=== PATIENT | female | born 1990 | race Caucasian/White ===

== ENCOUNTER 2016-12-16 18:07 | Emergency (ER) | payer BC ==
[~2016-12-16 18:07] MED LIST: ANIMAL SHAPES1 EAC2 PO; CIPRO PO; LEVAQUIN750 MG PO; MOTRIN600 M2 PO; NO MEDICATIONS; PHENERGAN25 MG PO; TOPAMAX PO; VIT B-12 PO; VITAMIN D400 UNI2 PO
== END 2016-12-16 18:09 | disposition home or self-care (01) ==
LOC: SED 18:07
DX: H66.92 Otitis media, unspecified, left ear (principal); H60.92 Unspecified otitis externa, left ear; F17.200 Nicotine dependence, unspecified, uncomplicated; G43.909 Migraine, unspecified, not intractable, without status migrainosus
CPT/HCPCS: 99282

== ENCOUNTER 2017-06-08 16:39 | Emergency (ER) | payer BC ==
--- NOTE | ~2017-06-08 | CT71 ---
[facility] A Service of [facility] RADIOLOGY TEXT RESULTS PATIENT: SARA KAPLAN LOCATION: SED : [birth year] UNIT #: [id number] AGE: [address]: Jose Alejandro Coates MD SEX: F ORDER DR: [id number] [address] [address] [id number] MR#: [id number] Acc #: [id number] NAME: SARA KAPLAN : 1990 SEX: F STUDY DATE/TIME: 06/08/2017 17:34 UNIT: SED ROOM: STUDY DESCRIPTION: CT Head Wo Contrast Attending Physician: Jose Alejandro Coates M.D. Ordering Physician: Jose Alejandro Coates M.D. Primary Care Physician: No Primary Care Physician MEDICAL IMAGING REPORT This report is preliminary unless electronic signature is present. EXAM CT of head without IV contrast. COMPARISON None. INDICATIONS 26-year-old female with sharp pain posterior to the right eye sustained today. History of migraines. Current emesis. FINDINGS This CT exam was performed with one or more of the following radiation dose reduction techniques: automatic exposure control, adjustment of mA and/or kV according to patient size, and iterative reconstruction. Axial noncontrast images were obtained from the skull base to the vertex. Ventricular size and configuration are normal. There is no evidence of acute infarct or hemorrhage. There are no extra-axial fluid collections. No mass lesion or mass effect is seen. There are no skull fractures. IMPRESSION Normal noncontrast head CT. Dictated by... Ryan Callejas M.D. THIS IS AN ELECTRONICALLY VERIFIED REPORT Ryan Callejas M.D. at 06/13/2017 10:54 PM Marlon TD: 06/09/2017 00:18 [facility] A Service of [facility] RADIOLOGY TEXT RESULTS PATIENT: SARA KAPLAN LOCATION: SED : 91 UNIT #: [id number] AGE: [address]: Jose Alejandro Coates MD SEX: F ORDER DR: JOB #: [id number] MEDICAL IMAGING REPORT Page 1 of 1
[2017-06-08 17:15] LABS: URINE SOURCE CLEAN CATCH
[2017-06-08 17:19] LABS: URINE APPEARANCE CLEAR; URINE BILIRUBIN NEG (NEG); URINE BLOOD 2+ (NEG); URINE COLOR YELLOW; URINE GLUCOSE NEG (NORM); URINE LEUKOCYTE ESTERASE NEG (NEG); URINE NITRATE NEG (NEG); URINE PH 8.5 (5-8); URINE PROTEIN TRACE (NEG); URINE SPECIFIC GRAVITY 1.015 (1.003-1.035)
[2017-06-08 17:25] LABS: MICRO INDICATED? YES; URINE KETONE 3+ (NEG)
[2017-06-08 17:26] LABS: CULTURE INDICATED? YES; URINE BACTERIA 1+ (NEG); URINE MUCUS PRESENT; URINE SQUAMOUS EPITHELIAL CELL MODERATE /[HPF]; URINE WBC 0-2 /[HPF] (0-5)
== END 2017-06-08 18:28 | disposition home or self-care (01) ==
LOC: SED 16:39
PROVIDERS: Emergency Medicine
DX: G43.909 Migraine, unspecified, not intractable, without status migrainosus (principal)
CPT/HCPCS: 70450; 81003; 84703; 87086; 96372; 96374; 99284; J0780; J1200